=== PATIENT | female | born 2000 | race Caucasian/White ===

== ENCOUNTER 2025-03-26 15:07 | Emergency (ER) | payer MEDICAID ==
[~2025-03-26] VITALS: Ht 170.2 cm; Wt 68.0 kg
[2025-03-26 15:15] VITALS: O2SAT 100
[2025-03-26] MEDS: KETOROLAC 15MG/ML VIAL IM ONE (18:30)
[2025-03-26 19:00] VITALS: BP 110/70; PULSE 75; RESP 15; TEMP 36.6; O2SAT 100
== END 2025-03-26 19:01 | disposition home or self-care (01) ==
LOC: ER 15:07
DX: S46.911A Strain of unspecified muscle, fascia and tendon at shoulder and upper arm level, right arm, initial encounter (principal); X58.XXXA Exposure to other specified factors, initial encounter; Y93.89 Activity, other specified; Y92.89 Other specified places as the place of occurrence of the external cause; Y99.8 Other external cause status
CPT/HCPCS: 99283; 73030; 96372; J1885